=== PATIENT | female | born 1970 | race Hispanic/Latino ===

== ENCOUNTER 2022-08-30 15:10 | Outpatient (CLI) | payer BC ==
[2022-08-30 16:17] LABS: BHCG - Serum Negative (NEGATIVE); Pregs Control Background? CLEAR/WHITE (CLR/WHITE); Pregs Control Bar Appear? YES (CONTROL BAR)
== END 2022-08-30 15:11 | disposition home or self-care (01) ==
LOC: LABBT 15:10
PROVIDERS: ATTEND Specialist
DX: Z01.812 Encounter for preprocedural laboratory examination (principal); J34.3 Hypertrophy of nasal turbinates
CPT/HCPCS: 84703; 85014; 93005; 93010

== ENCOUNTER 2022-09-02 08:33 | Day surgery (SDC) | payer BC ==
[2022-09-01 13:59] VITALS: BMI 24.8
[2022-09-02] MEDS ORDERED: Oxymetazoline HCl 0.05% (30 ML BOT) ONE (09:43)
[2022-09-02] MEDS ORDERED: EPINEPHrine 1 MG/ML AMP ONE (10:39)
[2022-09-02] MEDS ORDERED: Lidocaine 1% (PF) 30 ML VIAL ONE (10:39)
[2022-09-02] MEDS ORDERED: Bacitracin Zinc Ointment 30 gm TUBE ONE (10:40)
[2022-09-02] MEDS ORDERED: fentaNYL PF 100 MCG/2 ML SYRINGE ONE (10:43)
[2022-09-02] MEDS ORDERED: Ondansetron PF 4 MG/2 ML Vial ONE (10:54)
[2022-09-02] MEDS ORDERED: NEOSTIGMINE 3 MG/3 ML SYR 3 MG/3 ML SYRINGE ONE (10:54)
[2022-09-02] MEDS ORDERED: PROPOFOL 200 MG/20 ML VIAL ONE (10:54)
[2022-09-02] MEDS ORDERED: Dexamethasone 20 MG/5 ML VIAL ONE (10:54)
[2022-09-02] MEDS ORDERED: Lidocaine 1% PF 5 ML VIAL ONE (10:54)
[2022-09-02] MEDS ORDERED: Glycopyrrolate 0.2 MG/ML 5 ML SYRINGE ONE (10:54)
[2022-09-02] MEDS ORDERED: PHENYLEPHRINE-NS 100 MCG/ML 10 ML SYRINGE ONE (10:54)
[2022-09-02] MEDS ORDERED: Rocuronium Bromide 10 MG/ML (10ML VIAL) ONE (10:54)
== END 2022-09-02 13:34 | disposition home or self-care (01) ==
LOC: SDC 08:33
PROVIDERS: ATTEND Specialist
PROC: 09SL8ZZ Reposition Nasal Turbinate, Via Natural or Artificial Opening Endoscopic (ICD-10-PCS; principal; 2022-09-02)
PROC: 09SM0ZZ Reposition Nasal Septum, Open Approach (ICD-10-PCS; principal; 2022-09-02)
DX: J34.2 Deviated nasal septum (principal); J34.3 Hypertrophy of nasal turbinates; J32.9 Chronic sinusitis, unspecified; Z79.899 Other long term (current) drug therapy
CPT/HCPCS: J0171; J1100; J2001; J2405; J2704